=== PATIENT | female | born 1975 | race African-American/Black ===

== ENCOUNTER 2021-05-07 12:21 | Emergency (ER) | payer BC ==
[2021-05-08 13:07] LABS: SARS-CoV-2 NAA Not Detected (Not Detected)
== END 2021-05-07 13:20 | disposition home or self-care (01) ==
LOC: JVIRT 12:21
DX: Z11.52 Encounter for screening for COVID-19 (principal)
CPT/HCPCS: C9803; Q3014-GT; U0003; U0005